=== PATIENT | male | born 1995 | race Caucasian/White ===

== ENCOUNTER 2016-11-28 13:02 | Emergency (ER) | payer MEDICAID, OTHER ==
[2016-11-28 13:02] VITALS: BMI 30.1
[2016-11-28 13:10] VITALS: BP 163/89; PULSE 59; RESP 18; TEMP 97.9; O2SAT 100
--- NOTE | 2016-11-28 13:31 | C.PDOC ---
History Of Present Illness 21 y/o male presents to emergency department with complaint of chest pain for 1 week. Patient reports pain worsens with movement of upper extremities. Patient states he uses marijuana to help with pain, without relief. Patient notes no past medical history. Denies fever, chills, headache, shortness of breath, cough , nausea, vomiting, abdominal pain, or other associated symptoms. Time Seen by Provider: 11/28/16 13:15 Chief Complaint (Nursing): Chest Pain History Per: Patient History/Exam Limitations: no limitations Onset/Duration Of Symptoms: Days Current Symptoms Are (Timing): Still Present Quality: "Pain" Associated Symptoms: denies: Dyspnea, Diaphoresis Exacerbating Factors: Movement Recent travel outside of the [place]: No Past Medical History Reviewed: Historical Data, Nursing Documentation, Vital Signs Vital Signs: Last Vital Signs Temp 97.9 F 11/28/16 13:09 Pulse 59 L 11/28/16 13:09 Resp 18 11/28/16 13:09 BP 163/89 H 11/28/16 13:09 Pulse Ox 100 11/28/16 13:31 - Medical History PMH: No Chronic Diseases Surgical History: No Surg Hx Family History: States: Unknown Family Hx - Social History Hx Tobacco Use: Yes Hx Alcohol Use: Yes Hx Substance Use: No - Immunization History Hx Tetanus Toxoid Vaccination: No Hx Influenza Vaccination: No Hx Pneumococcal Vaccination: No Review Of Systems Except As Marked, All Systems Reviewed And Found Negative. Constitutional: Negative for: Fever, Chills Cardiovascular: Positive for: Chest Pain. Negative for: Palpitations Respiratory: Negative for: Cough, Shortness of Breath, Wheezing Gastrointestinal: Negative for: Nausea, Vomiting, Abdominal Pain Skin: Negative for: Rash Neurological: Negative for: Headache, Dizziness Physical Exam - Physical Exam Appears: Non-toxic, No Acute Distress Skin: Normal Color, Warm, Dry Head: Atraumatic, Normacephalic Chest: Symmetrical Cardiovascular: Rhythm Regular Respiratory: Normal Breath Sounds, No Rales, No Rhonchi, No Wheezing Gastrointestinal/Abdominal: Soft, No Tenderness, No Guarding, No Rebound Back: Normal Inspection Extremity: Normal ROM, Capillary Refill (< 2 sec. ) Neurological/Psych: Oriented x3, Normal Speech, Normal Cognition Gait: Steady ED Course And Treatment O2 Sat by Pulse Oximetry: 100 (RA) Pulse Ox Interpretation: Normal Progress Note: EKG and CxR ordered and reviewed. Disposition Counseled Patient/Family Regarding: Studies Performed, Diagnosis, Need For Followup, Rx Given - Disposition Referrals: [facility] [Outside] [facility] [Outside] Disposition: HOME/ ROUTINE Disposition Time: 14:30 Condition: GOOD Prescriptions: Naproxen [Naprosyn] 1 tab PO BID PRN #25 tab PRN Reason: Pain Instructions: Chest Pain (ED), Chest Wall Pain (ED) - POA Present On Arrival: None - Clinical Impression Clinical Impression: Chest pain, Chest wall pain - PA / SMALL BUSINESS CONSULTANT / Resident Statement MD/DO has reviewed & agrees with the documentation as recorded. - Scribe Statement The provider has reviewed the documentation as recorded by the Anaibfedercia Mcwilliams All medical record entries made by the Mateo were at my direction and personally dictated by me. I have reviewed the chart and agree that the record accurately reflects my personal performance of the history, physical exam, medical decision making, and the department course for this patient. I have also personally directed, reviewed, and agree with the discharge instructions and disposition.
--- NOTE | 2016-11-28 14:00 | RAD ---
HISTORY: SOB COMPARISON: None available. TECHNIQUE: Chest PA and lateral FINDINGS: LUNGS: No focal consolidation. Please note that chest x-ray has limited sensitivity for the detection of pulmonary masses. PLEURA: No significant pleural effusion identified. No definite pneumothorax . CARDIOVASCULAR: The cardiomediastinal silhouette appears within normal limits of size. OSSEOUS STRUCTURES: No acute osseous abnormality identified. VISUALIZED UPPER ABDOMEN: Unremarkable. OTHER FINDINGS: None. IMPRESSION: No focal consolidation, significant pleural effusion, or definite pneumothorax identified.
--- NOTE | 2016-12-06 01:40 | CARD ---
APPROVED REPORT EKG Measurement Heart [id number] <Conclusion> Normal sinus rhythm with sinus arrhythmia Normal ECG voltage criteria for LVH
== END 2016-11-28 14:24 | disposition home or self-care (01) ==
LOC: C.ER 13:02
DX: R07.89 Other chest pain (principal)

== ENCOUNTER 2016-12-01 16:45 | Emergency (ER) | payer MEDICAID, OTHER ==
[2016-12-01 16:46] VITALS: BMI 30.1
[2016-12-01 16:54] VITALS: RESP 18; O2SAT 100
--- NOTE | 2016-12-01 17:19 | C.PDOC ---
History Of Present Illness Patient is a 21 y/o male that is brought to the emergency department by his mother for evaluation of anxiety, and palpitations. Pt states that he cannot stay in a room with other people present. Pt denies any psych history, or any family psych history, drug/alcohol abuse, chest pain, shortness of breath, or any other physical complaints at this time. Chief Complaint (Nursing): Anxiety History Per: Patient History/Exam Limitations: no limitations Onset/Duration Of Symptoms: Gradual Current Symptoms Are (Timing): Still Present Suicide/Self Injury Attempted (Context): None Modifying Factor(s): None Severity: None Pain Scale Rating Of: 0 Associated Symptoms: Anxiety. denies: Suicidal Thoughts Involuntary Hold By: None Recent travel outside of the [place]: No Additional History Per: Family Past Medical History Reviewed: Historical Data, Nursing Documentation, Vital Signs Vital Signs: Last Vital Signs Temp 98.4 F 12/01/16 16:53 Pulse 70 12/01/16 16:53 Resp 18 12/01/16 16:53 BP 158/81 H 12/01/16 16:53 Pulse Ox 100 12/01/16 18:47 Family History: States: Unknown Family Hx - Social History Hx Tobacco Use: Yes Hx Alcohol Use: Yes Hx Substance Use: No - Immunization History Hx Tetanus Toxoid Vaccination: No Hx Influenza Vaccination: No Hx Pneumococcal Vaccination: No Review Of Systems Except As Marked, All Systems Reviewed And Found Negative. Constitutional: Negative for: Fever, Chills Cardiovascular: Positive for: Palpitations. Negative for: Chest Pain, Light Headedness Respiratory: Negative for: Cough, Shortness of Breath Gastrointestinal: Negative for: Nausea, Vomiting Neurological: Negative for: Headache, Dizziness Physical Exam - Physical Exam Appears: Non-toxic, No Acute Distress Skin: Normal Color, Warm, Dry Head: Atraumatic, Normacephalic Eye(s): bilateral: Normal Inspection, EOMI Neck: Normal ROM, Supple Chest: Symmetrical Cardiovascular: Rhythm Regular Respiratory: Normal Breath Sounds, No Rales, No Rhonchi, No Wheezing Extremity: Normal ROM Neurological/Psych: Oriented x3, Normal Speech, Normal Cognition, Other (flat affect) ED Course And Treatment - Laboratory Results Result Diagrams: 12/01/16 17:37 12/01/16 17:37 Lab Interpretation: No Acute Changes ECG: Interpreted By Me ECG Rhythm: Sinus Rhythm ECG Interpretation: No Acute Changes Rate From EC O2 Sat by Pulse Oximetry: 100 Pulse Ox Interpretation: Normal Progress Note: Labs, EKG ordered and reviewed, no acute changes. Pt was evaluated by iron worker foreman who discussed case with Dr. Sandoval who agreed to d/c pt home. F/u in [facility] on December 07. Reassessment Condition: Improved Disposition Counseled Patient/Family Regarding: Studies Performed, Diagnosis, Need For Followup - Disposition Referrals: [facility] [Outside] [facility] [Outside] Lance Jordan MD [Staff Provider] - Disposition: HOME/ ROUTINE Disposition Time: 18:44 Condition: STABLE Additional Instructions: FOLLOW WITH PMD, INSTRUCTIONAL CONSULTANT AND IN [facility] ON DECEMBER 07 AT 10 AM . IF SYMPTOMS GET WORSE OR ANY NEW CONCERNING SYMPTOMS DEVELOP RETURN TO ED. Instructions: Palpitations (ED), Anxiety (ED) Forms: General Discharge Instructions - Clinical Impression Clinical Impression: Anxiety, Heart palpitations - PA / ERP ANALYST / Resident Statement MD/DO has reviewed & agrees with the documentation as recorded. - Scribe Statement The provider has reviewed the documentation as recorded by the Scribe Juan Thomas All medical record entries made by the Mateo were at my direction and personally dictated by me. I have reviewed the chart and agree that the record accurately reflects my personal performance of the history, physical exam, medical decision making, and the department course for this patient. I have also personally directed, reviewed, and agree with the discharge instructions and disposition.
[2016-12-01 17:42] LABS: BASO % 0.5 % (0.0-2.0); EOS # 0.1 K/uL (0.0-0.7); EOS % 0.6 % (0.0-4.0); HEMATOCRIT 47.1 % (35.0-51.0); LYMPH # 0.9 K/uL (1.0-4.3); LYMPH % 8.3 % (20.0-40.0); MEAN CELL VOLUME 88.9 fL (80.0-94.0); MEAN CORPUSCULAR HEMOGLOBIN 30.5 pg (27.0-31.0); MEAN CORPUSCULAR HGB CONC 34.3 g/dL (33.0-37.0); MEAN PLATELET VOLUME 7.5 fL (7.2-11.7); MONO # 0.5 K/uL (0.0-0.8); PLATELET COUNT 265 K/uL (130-400); RED CELL DISTRIBUTION WIDTH 12.7 % (11.5-14.5); WHITE BLOOD COUNT 10.3 K/uL (4.8-10.8)
[2016-12-01 17:50] LABS: RBC URINE 1 /hpf (0-3); URINE BILIRUBIN NEGATIVE (NEGATIVE); URINE BLOOD NEGATIVE (NEGATIVE); URINE COLOR Yellow (YELLOW); URINE GLUCOSE (UA) NORMAL (Normal); URINE KETONE TRACE mg/dL (NEGATIVE); URINE LEUKOCYTE ESTERASE NEG Leu/uL (Negative); URINE PROTEIN NEGATIVE (NEGATIVE); URINE UROBILINOGEN NORMAL mg/dL (0.2-1.0); WBC URINE 3 /hpf (0-5)
[2016-12-01 17:59] LABS: CHLORIDE 100 mmol/L (98-107)
[2016-12-01 18:00] LABS: POTASSIUM 3.9 mmol/L (3.6-5.2); SODIUM 139 mmol/L (132-148)
[2016-12-01 18:02] LABS: BILIRUBIN,TOTAL 1.1 mg/dL (0.2-1.3); GFR AFRICAN-AMERICAN > 60
[2016-12-01 18:03] LABS: ALB/GLOB RATIO 1.4 (1.0-2.1); ALKALINE PHOSPHATASE 102 U/L (38-126); ALT/SGPT 24 U/L (21-72); AST/SGOT 24 U/L (17-59); BLOOD UREA NITROGEN 12 mg/dL (9-20); CALCIUM 9.4 mg/dl (8.6-10.4); CARBON DIOXIDE 26 mmol/L (22-30); GLUCOSE,RANDOM 110 mg/dL (75-110); TOTAL PROTEIN 8.2 g/dL (6.3-8.3)
[2016-12-01 18:04] LABS: ALCOHOL SERUM < 10 mg/dl (0-10)
[2016-12-01 18:33] LABS: THYROID STIMULATING HORMONE 0.56 mIU/L (0.46-4.68)
[2016-12-01 18:37] LABS: NEUTROPHIL 81 % (50-75); TOTAL CELLS COUNTED 100
[2016-12-01 18:56] VITALS: BP 142/76; PULSE 74; TEMP 98.5
--- NOTE | 2016-12-07 16:25 | CARD ---
APPROVED REPORT EKG Measurement Heart [id number] <Conclusion> Normal sinus rhythm Normal ECG
== END 2016-12-01 18:56 | disposition home or self-care (01) ==
LOC: C.ER 16:45
DX: F41.9 Anxiety disorder, unspecified (principal); R00.2 Palpitations